=== PATIENT | male | born 1940 | race Caucasian/White ===

== ENCOUNTER → 2016-11-30 | Day surgery (SDC) | payer MEDICARE ==
[~2016-11-30] MED LIST: ASPI1TAB7 PO; ATOR20TA PO; B-COTAB41 PO; BACITRACIN IM FOR SOLN 50,000 UNIT VIAL ONE; BILB1CAP2 PO; BUPIVACAINE/EPINEPHRINE 0.25% 50 ML VIAL ONE; BUPIVACAINE/EPINEPHRINE 0.25% PF 10 ML VIAL ONE; CO Q100C9 PO; GENTAMICIN SULFATE 80 MG/2 ML VIAL ONE; HYDR500C PO; KETOROLAC TROMETHAMINE 30 MG/ML (IVP) VIAL IV PUSH ONE; KRIL300C PO; LACTATED RINGER'S 1000 ML INJ 1,000 ML ONE; MEPERIDINE HCL 25 MG/ML VIAL ONE; METO50TA11 PO; MIDAZOLAM HCL 2 MG/2 ML VIAL ONE; NORV5TAB PO; ONDANSETRON HCL 4 MG/2 ML VIAL IV PUSH ONE; OSTETAB3 PO; PROPOFOL 200 MG/20 ML AMP IV ONE; SODIUM CHLORIDE 0.9% 20 ML VIAL ONE; TAB-TAB PO; VANCOMYCIN HCL 1000 MG VIAL ONE; Z.0.WALKERFRONT; ceFAZolin 2 GM PREMIX 50 ML ONE; ceFAZolin INJ 1,000 MG VIAL ONE
--- NOTE | 2016-11-30 10:11 | TN ---
cc: EDMUNDO HENSON M.D. DATE OF OPERATION November 30, 2016 PREOPERATIVE DIAGNOSIS Right knee medial compartment severe osteoarthritis, genu varus deformity, chondromalacia patellae. POSTOPERATIVE DIAGNOSIS Right knee medial compartment severe osteoarthritis, genu varus deformity, chondromalacia patellae. PROCEDURE Right knee medial unicondylar arthroplasty, partial patellectomy. SURGEON MD GARO Smith MD Elizabeth Ashley Clapper, PA-C SPECIMEN None. ESTIMATED BLOOD LOSS Minimal. COMPLICATIONS None. ANESTHESIA General. DRAIN One. TOURNIQUET TIME 46 minutes at 300 mmHg CONDITION Stable. PLAN OF ACTIVITY As per orders. PROCEDURE My delinquent tax collection assistant, Khris Henson MD, was present for the entire surgical case. He was medically necessary for the entire case because of the complexity of the case and to facilitate the performance of the procedure. The WAISTBAND SETTER LOCKSTITCH at the back table was not of the skill set for this case to manipulate the instruments, e.g. the multiple different soft tissue tractors, trial implants and permanent implants including bone cement. The patient was brought into the operating room, had satisfactory general anesthesia by the Department of Anesthesia. The right lower extremity was prepped and draped in the usual sterile manner. The extremity was exsanguinated by Davidson wrap and the tourniquet inflated to 300 mmHg. A small anterior medial exposure of the knee was made. All bleeders were then coagulated. Dissection was carried through the skin and subcutaneous tissue. Paramedial capsulotomy was performed, partial patellectomy performed by the medial facet. The patient was found to have significant chondromalacia involving the medial facet of the patella. The remaining portions of the medial and lateral meniscus were removed. Appropriate medial releases were performed because of the patient's varus deformity and also knee flexion deformity. Using the [employer] unicondylar arthroplasty system, guide was used for right knee femoral component. Approximately 7 mm of the posterior condyle was removed. Using a bur, the tibia was prepared to accept a #3, 6.5-mm tibial component. The distal femur was prepared in a manner to accept a #2 right medial femoral component. Trial reduction was performed. The patient was found to have appropriate balances in flexion and extension with excellent correction of the patient's genu varus deformity. All trial components were removed and preparation for cementing was made. One package of high viscosity bone cement by [employer] was used. First the tibial component was cemented which is a #3 6.5-mm tibial component, then the femoral component was cemented which is a #2 right medial femoral component. All excess bone cement was removed. The bone cement was allowed to harden for 16 minutes. The knee was injected with 0.25% Marcaine with epinephrine, approximately 50 cc used. The tourniquet was deflated, all bleeders coagulated. The wound itself was dry. The wound was irrigated with copious amounts of sterile saline antibiotic solution. The wound itself was dry. The wound was closed over an 1/8-inch Hemovac drain. Extensor mechanism was closed with multiple interrupted #2 Ticron sutures. The subcutaneous tissue was closed in layers with 2-0 Vicryl and the skin was approximated with running subcuticular 3-0 Vicryl suture. Benzoin and Steri-Strips were used, sterile dressings were applied. The patient tolerated the procedure well and arrived in the recovery room in stable and satisfactory condition. Edmundo Henson MD AG/SSB /9:47 AM /9:54 AM
== END | disposition home or self-care (01) ==
LOC: ESDC 06:08
PROVIDERS: ATTEND Orthopaedic Surgery Orthopaedic Surgery of the Spine
DX: M17.11 Unilateral primary osteoarthritis, right knee (principal); M21.161 Varus deformity, not elsewhere classified, right knee; M22.41 Chondromalacia patellae, right knee
CPT/HCPCS: 01400; 27446; C1776; J0690; J1580; J1885; J2175; J2250; J2405; J3010; J3370; J7120

== ENCOUNTER → 2017-02-08 | Day surgery (SDC) | payer MEDICARE ==
[~2017-02-08] MED LIST changes: -BUPIVACAINE/EPINEPHRINE 0.25% PF 10 ML VIAL ONE; +SODIUM CHLOR 0.9% 250 ML INJ 250 ML IV ONE
--- NOTE | 2017-02-08 09:09 | TN ---
cc: KELTON BUI ALBERT DATE OF SURGERY 02/08/2017 PREOPERATIVE DIAGNOSIS Left knee medial unicondylar arthroplasty, genu varus deformity. POSTOPERATIVE DIAGNOSIS Left knee medial unicondylar arthroplasty, genu varus deformity. PROCEDURE Left knee medial unicondylar arthroplasty, partial patellectomy SURGEON Zana Michaels MD ASSESSMENT Jl Michaels MD, Kristan Reeder PA-C SPECIMENS None ESTIMATED BLOOD LOSS None COMPLICATIONS None ANESTHESIA General DRAINS One TOURNIQUET TIME 44 minutes at 250 mmHg CONDITION Stable PLAN OF ACTIVITY Per orders. My computer assistant Khris Michaels MD was present for the entire surgical case. He was medically necessary for the entire case because of the complexity case and to facilitate the performance of the procedure. The SERVICE OBSERVER CHIEF at back table was not a skill set for this case to manipulate the instruments e.g. the multiple different types of soft tissue tractors, trial implants, permanent plans including bone cement. The patient brought into the operating room and had satisfactory general anesthesia by Dr. Cisse of the Department of Anesthesia. INDICATIONS This is a 76-year-old male is scheduled for a second staged medial unicondylar arthroplasty. He had previously undergone a right knee medial unicondylar arthroplasty approximately two months ago. He is very satisfied and pleased with the procedure and wished to proceed ahead with the second surgery which is a left knee medial unicondylar arthroplasty and partial patellectomy. PROCEDURE The patient brought into the operating room, had satisfactory general anesthesia by Dr. Cisse of the Department of Anesthesia. The left lower extremity was prepped and draped in the usual sterile manner. The extremity was exsanguinated by Davidson wrap and tourniquet was inflated to 250 mmHg. Tourniquet time was equal to 44 minutes. A small anterior medial exposure to the knee was made. A capsulotomy was performed. The patient was found to have severe osteoarthritis and genu varus deformity involving the medial compartment. The patient was also found to have significant osteophytes involving the medial facette of the patella. An oscillating saw was used to perform partial patellectomy in the sagittal plane. The remaining portion of the medial meniscus was removed. Appropriate soft tissue release was performed medially to help correct the patient's varus deformity. Using the [employer] unicondylar arthroplasty system, a guide was used for posterior distal femoral cut. Using a bur, the proximal tibia was prepared to accept a #3 tibial component and the distal femur was prepared to except a #2 femoral component left medial a. Medial osteophytes were removed off the distal femur. Trial reduction was made. The patient was found to have excellent balance of the knee in both flexion/extension with a nice correction of the patient's genu varus deformity. All trial components were removed and preparation for cementing was made. Initially, the knee was injected with 0.25% Marcaine with epinephrine approximately 55 cc. One package of high viscosity bone cement was used by [employer]. First, the tibial component was cemented which is a #3, 6.5 mm tibial component and the femoral component was cemented which is a #2 left medial femoral component. All excess bone cement was removed. The bone cement was allowed to harden for 13 minutes. Tourniquet was deflated. There was no bleeding. The wound was irrigated with copious amounts of sterile saline antibiotic solution. The wound closed in layers over an eighth inch Hemovac drain. The capsule was repaired using multiple interrupted #2 Tycron sutures. The subcutaneous tissues were closed in layers with 2-0 Vicryl. Skin was approximated with running subcuticular 3-0 Vicryl and Steri-Strips were inserted. The patient tolerated the procedure well and arrived in the recovery room in stable and satisfactory condition. MD MATTHIEU Degroot/AMENA /8:35 AM /8:49 AM
== END | disposition home or self-care (01) ==
LOC: ESDC 06:01
PROVIDERS: ATTEND Orthopaedic Surgery Orthopaedic Surgery of the Spine
DX: M21.162 Varus deformity, not elsewhere classified, left knee (principal); M17.12 Unilateral primary osteoarthritis, left knee
CPT/HCPCS: 01400; 27446; C1776; J0690; J1580; J1885; J2175; J2250; J2405; J3010; J3370; J7050; J7120